=== PATIENT | male | born 1975 | race Caucasian/White ===

== ENCOUNTER 2024-05-20 18:29 | Emergency (ER) | payer OTHER ==
[~2024-05-20] VITALS: Ht 172.7 cm; Wt 118.1 kg
[2024-05-20 19:08] LABS: Basophils # (auto) 0.1 10 ^3/uL (0-0.2); Basophils % (auto) 0.7 % (0.0-2.0); Eosinophils # (auto) 0.2 10 ^3/uL (0-0.8); Eosinophils % (auto) 2.7 % (0.0-7.0); Hematocrit 45.7 % (41.0-53.0); Hemoglobin 16.3 g/dL (13.5-17.5); Lymphocytes # (auto) 2.4 10 ^3/uL (0.4-5.4); Lymphocytes % (auto) 30.6 % (10.0-50.0); Mean Corpuscular Hemoglobin 31.5 pg (28.0-32.0); Mean Corpuscular Hgb Conc. 35.6 g/dL (32.0-36.0); Mean Corpuscular Volume 88.4 fL (80.0-100.0); Monocytes # (auto) 0.5 10 ^3/uL (0-1.3); Monocytes % (auto) 6.6 % (0.0-12.0); Neutrophils # (auto) 4.7 10 ^3/uL (1.6-8.6); Neutrophils % (auto) 59.4 % (37.0-80.0); Platelet Count (auto) 201 10^3/uL (140-450); Red Blood Cells 5.17 10^6/uL (4.5-5.90); Red Cell Distribution Width 13.2 % (11.8-14.3); White Blood Cell 7.9 10^3/uL (4.4-10.8)
[2024-05-20] MEDS: SODIUM CHLORIDE 0.9% 1,000 ML IV ONE (19:09)
[2024-05-20] MEDS: METOPROLOL TARTRATE 1MG/1ML-5ML VIAL IV ONE (19:10)
[2024-05-20 19:19] LABS: Anion Gap 6 (5-15); Carbon Dioxide 26 mmol/L (20-30); Chloride 105 mmol/L (98-107); Potassium 4.1 mmol/L (3.5-5.1); Sodium 137 mmol/L (136-145)
[2024-05-20 19:20] LABS: Calcium 9.5 mg/dL (8.7-10.4)
[2024-05-20 19:25] LABS: Blood Urea Nitrogen 9 mg/dL (9-23); Glucose 105 mg/dL (74-106)
[2024-05-20 20:00] VITALS: PULSE 71; RESP 16; TEMP 98.1; O2SAT 94
[2024-05-20 23:11] VITALS: BP 121/62; PULSE 73; RESP 16; O2SAT 97
== END 2024-05-20 23:12 | disposition home or self-care (01) ==
LOC: EDBD 18:29 → ER 18:29
DX: I16.0 Hypertensive urgency (principal); F19.10 Other psychoactive substance abuse, uncomplicated; F17.210 Nicotine dependence, cigarettes, uncomplicated; Z88.0 Allergy status to penicillin; Z88.1 Allergy status to other antibiotic agents
CPT/HCPCS: 36415; 71045; 80048; 85025; 96361; 96374; 99285; J7030